=== PATIENT | female | born 1950 | race Caucasian/White ===

== ENCOUNTER → 2017-06-29 13:51 | Outpatient (CLI) | payer MEDICARE, BC ==
[2013-04-17 11:14] VITALS: BMI 42.1
[~2017-06-29 13:51] MED LIST: ADVAIR 100/501 DISK INH; GLUCOTROL 5 MG T5 MG PO; LASIX20 MG PO; LISINOPRIL-HCTZ1 T13 PO; PRAVACHOL20 MG PO; SINGULAIR10 MG PO
== END | disposition home or self-care (01) ==
LOC: D.MAMMO 11:15
DX: Z12.31 Encounter for screening mammogram for malignant neoplasm of breast (principal)

== ENCOUNTER → 2018-04-18 12:48 | Outpatient (CLI) | payer MEDICARE, BC ==
[2013-04-17 11:14] VITALS: BMI 42.1
--- NOTE | ~2018-04-18 | EC ---
PATIENT:JASPREET NELSON DATE OF SERVICE: 04/18/18 SEX: F MEDICAL RECORD: [id number] DATE OF : 46 [facility] AGE OF PATIENT: 68 ADMISSION DATE: 04/18/18 REFERRING PHYSICIAN: INTERPRETING PHYSICIAN: KOKO WOODALL MD ECHOCARDIOGRAM REPORT ECHO CHARGES 4 ECHO COMPLETE Date: 04/18/18 CLINICAL DIAGNOSIS: HTN, SYNCOPE ECHOCARDIOGRAPHIC MEASUREMENTS (adult normal given) AC root (d.<3.7cm) 2.8 cm LV Septum d (<1.2 cm> 1.1 cm Valve Excursion 1.5 cm LV Septum (systole) 1.2 cm Left Atria (s.<4.0cm> 3.6 cm LVPW d(<1.2cm) 0.7 cm RV (d.<2.3cm) 3.2 cm LVPW (sytole) 0.7 cm LV diastole(<5.6CM) 5.4 cm MV E-F(>70mm/sec) cm LV systole 4.3 cm LVOT Diameter 1.8 cm MV exc.(>10mm) cm Est.ejection fraction (50-75%) % DOPPLER: LVIT cm/sec A 96 cm/sec E 74 cm/sec LA cm/sec RVSP 16.9 mmHg LVOT 110 cm/sec AOP1/2T m/s Asc. Ao 115 cm/sec RVOT 118 cm/sec RA cm/sec PA 125 cm/sec AV Gradient Peak 5.3 mmHg AV Mean 3.1 mmHg AV Area 2.8 cm MV Gradient Peak 3.4 mmHg MV Mean 1.9 mmHg MV Area cm COMMENTS: Highway Engineering Technician: Terri [facility] Propeller Inspector: Dottie Woodall TAPE# PACS Pericardial Effusion N DATE OF SERVICE: PROCEDURE: Transthoracic echocardiogram. FINDINGS: 1. Left ventricle shown to be difficult to visualize. It appears that the left ventricle has normal function, but has evidence of left ventricular hypertrophy and diastolic dysfunction. The ejection fraction 50% to 55%. 2. Left atrium is grossly normal. 3. The aortic valve is grossly normal. ECHOCARDIOGRAM REPORT [id number] JASPREET NELSON 4. The mitral valve appears to be normal. 5. The tricuspid valve appears to be normal. 6. The right ventricle is mildly dilated, but normal function. 7. The right atrium is mildly dilated. 8. Pericardium is normal. CONCLUSIONS: The patient has evidence of mild hypertensive heart disease with normal left ventricular systolic function. TRANSINT:[id number] Voice Confirmation ID: [id number] DOCUMENT ID: [id number] KOKO WOODALL MD at 0744 CC: [id number] DICTATION DATE: 04/20/18 0928 GREENSMAN: 04/20/18 1059 DEP CLI 04/18/18 [id number] [place] [address]
== END | disposition home or self-care (01) ==
LOC: D.ECHO 10:30
DX: I10 Essential (primary) hypertension (principal); E78.5 Hyperlipidemia, unspecified; R55 Syncope and collapse; I20.9 Angina pectoris, unspecified; R06.00 Dyspnea, unspecified; R06.01 Orthopnea

== ENCOUNTER → 2018-05-31 16:38 | Outpatient (CLI) | payer MEDICARE ==
[2013-04-17 11:14] VITALS: BMI 42.1
[2018-05-31 17:15] LABS: BASOPHILS 0.7 % (0-2); EOSINOPHILS 2.3 % (0-7); HEMATOCRIT 37.6 % (36.0-48.0); HEMOGLOBIN 12.8 g/dL (12-16); IMMATURE GRANULOCYTES 0.2 % (0-5); LYMPHOCYTES 32.3 % (15-50); MCV 88.3 fL (80.0-100.0); MEAN PLATELET VOLUME 11.3 fL (7.4-10.4); MONOCYTES 9.6 % (2-11); NEUTROPHILS 54.9 % (40-80); PLATELET COUNT 290 10x3/uL (130-400); RBC 4.26 10x6/uL (4.00-5.40); RDW 13.4 % (11.5-14.5); WBC 8.3 10x3/uL (4.8-10.8)
[2018-05-31 17:45] LABS: ALBUMIN 3.5 g/dL (3.4-5.0); BILIRUBIN - TOTAL 0.21 mg/dL (0.2-1.3); CALCIUM 9.2 mg/dL (8.5-10.1); CARBON DIOXIDE 28.5 mmol/L (21.0-32.0); CREATININE - SERUM 1.3 mg/dL (0.6-1.3); POTASSIUM - SERUM 4.5 mmol/L (3.5-5.1); PROTEIN - SERUM 7.2 g/dL (6.4-8.2)
== END | disposition home or self-care (01) ==
LOC: D.LABREF 16:38
PROVIDERS: Internal Medicine Cardiovascular Disease
DX: I10 Essential (primary) hypertension (principal); R06.00 Dyspnea, unspecified

== ENCOUNTER → 2018-06-01 08:38 | Outpatient (CLI) | payer MEDICARE ==
[2013-04-17 11:14] VITALS: BMI 42.1
--- NOTE | ~2018-06-01 | ST ---
PATIENT:JASPREET NELSON MEDICAL RECORD: [id number] SEX: F LOCATION:[facility] ORDER #: ADMISSION DATE: 06/01/18 AGE OF PATIENT: 68 REFERRING PHYSICIAN: INTERPRETING PHYSICIAN: FARZAD BENNETT MD DATE OF SERVICE: 06/01/2018 PROCEDURE: Nuclear stress test. INDICATION: Angina, shortness of breath, diabetes, obesity. The patient was exercised on standard Lexiscan protocol with 32.8 mCi of sestamibi injected at peak stress, 11.0 mCi were used previously for rest images. FINDINGS: Gated SPECT reveals preserved ejection fraction at 66% with good wall motion and thickening and brightening throughout all segments. SPECT imaging sestamibi is used as myocardial perfusion agent. There is homogeneous uptake throughout all segments at rest and stress with no evidence of inducible ischemia or previous infarction. OVERALL IMPRESSION: 1. This is a normal nuclear stress test with no evidence of inducible ischemia or previous infarction. 2. Gated SPECT reveals a preserved ejection fraction greater than 60%. In this patient with ongoing symptomatology, the current scan does not suggest the presence of hemodynamically significant coronary artery disease. Evaluate noncardiac etiology of chest pain. TRANSINT:[id number] Voice Confirmation ID: [id number] DOCUMENT ID: [id number] FARZAD BENNETT MD at 1925 CC: ANGELITO SMITH [id number] DICTATION DATE: 06/02/18 1420 PHYSICAL SECURITY SPECIALIST: 06/02/182112 DEP CLI 06/01/18 [facility] [address] [place] [address]
== END | disposition home or self-care (01) ==
LOC: D.HCCARDIO 08:38
DX: I20.0 Unstable angina (principal)

== ENCOUNTER 2018-09-11 11:20 | Outpatient (CLI) | payer MEDICARE ==
[~2018-09-11] VITALS: Ht 160 cm; Wt 103.6 kg
--- NOTE | ~2018-09-11 | HEMODYNAMI ---
PATIENT:JASPREET NELSON MEDICAL RECORD: [id number] : 46 LOCATION:[facility] ADMISSION DATE: 09/11/18 Generatedon:09/11/201813:33 Patient name: JASPREET NELSON Patient #: [id number] SSN: : 1950 Date of study: 09/11/2018 Page: Of Hemodynamic Procedure Report Patient Data Patient Demographics Procedure consent was obtained First Name: JASPREET Gender: Female Last Name: OMAR : 1950 Patient #: [id number] Age: 68 year(s) Race: Unknown Additional ID: [id number] Contact details [address]: [address] [place] [address] State: [place] City: [place] Zip code: [address] Past Medical History Allergies Allergen Reaction Date Comments Reported Other allergy 09/11/2018 BUCK MALDONADO Admission Admission Data Admission Date: 09/11/2018 Admission Time: 11:20 Height (in.): 63 BSA: 2.05 (m2) Height (cm.): 160.02 BMI: 40.46 (kg/m2) Weight (lbs.): 228.4 Weight (kg.): 103.6 Lab Results Lab Result Date: 09/11/2018 Lab Result Time: 0:00 Biochemistry Name Units Result Min Max BUN mg/dl 43 --(----)-* 7 18 Creatinine mg/dl 1.8 --(----)-* 0.6 1.3 CBC Name Units Result Min Max Hemoglobin g/dl 12.4 *-(----)-- 13.5 17.5 Procedure Procedure Types Cath Procedure Diagnostic Procedure C [facility] w/Coronaries Sedation Charges Moderate Sedation up to 15 minutes Procedure Description Procedure Date Procedure Date: 09/11/2018 Procedure Start Time: 13:10 Procedure End Time: 13:31 Procedure Staff Name Function Dawna Levine RT Monitor Sriram Hinojosa RT Scrub Jose Jefferson RN Nurse Gil Olvera MD Performing Physician Procedure Data Cath Procedure Fluoroscopy Diagnostic fluoroscopy Total fluoroscopy Time: 2.9 time: 2.9 min min Diagnostic fluoroscopy Total fluoroscopy dose: 993 dose: 993 mGy mGy Contrast Material Contrast Material Type Amount (ml) Isovue 300 81 Entry Location Entry Primary Successful Side Size Upsize Upsize Entry Closure Tariq ccessful Closure Location (Fr) 1 (Fr) 2 (Fr) Remarks Device Remarks Radial Right 6 Fr Mechanical artery Short Compression Estimated blood loss: 10 ml Diagnostic catheters Device Type Used For End Catheter Placement DIAGNOSTIC [place] 110cm 5 Procedure Fr catheter ([id number]) Procedure Complications No complications Procedure Medications Medication Administration Route Dosage Oxygen etCO2 Nasal cannula 2 l/min Lidocaine 2% added to field 20 Heparin Flush Bag added to field 2 bags (1000units/500ml NS) 0.9% NaCl I.V. 300 ml/hr Versed I.V. 1 mg Fentanyl I.V. 50 mcg Radial Cocktail I.A. 1 syringe (Verapomil 2mg/Nitro 400mcg/Heparin 1500units) Versed I.V. 1 mg Fentanyl I.V. 50 mcg Hemodynamics Rest BSA: 2.05 (m2) HGB: 12.4 (g/dl) O2 Consumption: Estimated: 198.17 (ml/min) O2 Co nsumption indexed: Estimated:96.67 (ml/min/m) Heart Rate: 82 (bpm) Pressure Samples Time Site Value (mmHg) Purpose Heart Use Rate(bpm) 13:15 LV 159/-9,3 Snapshot 81 Gradients Valve Time Site Site Mean SEP/DFP Peak To Heart Use 1 2 (mmHg) (sec/min) Peak Rate (mmHg) (bpm) Aortic 13:16 LV AO 85 Snapshots Pre Cath Intra NCS Post Cath Vital Signs Time Heart Resp SPO2 etCO2 NIBP (mmHg) Rhythm Pain Sedation Rate (ipm) (%) (mmHg) Status Level (bpm) 13:03:09 84 12 98 32.5 Measuring NSR 0 (11) 10(A) , No pain 13:04:29 76 22 98 34.8 208/92(103) NSR 0 (11) 10(A) , No pain 13:09:12 77 13 97 22 184/85(151) NSR 0 (11) 10(A) , No pain 13:13:52 73 14 99 29.5 156/79(130) NSR 0 (11) 9(A) , No pain 13:18:29 80 14 97 36.3 139/69(104) NSR 0 (11) 9(A) , No pain 13:22:59 82 16 99 150/75(115) NSR 0 (11) 9(A) , No pain 13:27:32 84 16 100 169/88(132) NSR 0 (11) 10(A) , No pain 13:32:10 81 15 100 180/93(150) NSR 0 (11) 10(A) , No pain Medications Time Medication Route Dose Verified Delivered Reason Notes Effectiveness by by 12:55:18 Oxygen etCO2 2 l/min Zach Buffie used for Nasal Chavez Jefferson RN procedure cannula 12:55:24 Lidocaine 2% added 20ml Zach Zach for local to vial Chavez Byrne MD anesthetic field 12:55:30 Heparin Flush added 2 bags Zach Zach used for Bag to Chavez Byrne MD procedure (1000units/500ml field NS) 12:55:41 0.9% NaCl I.V. 300 Zachradha Uriasie Per ml/hr Chavez Jefferson RN physician 13:11:25 Versed I.V. 1 mg Zachradha Uriasie for sedation Chavez Jefferson RN 13:11:30 Fentanyl I.V. 50 mcg Zach Uriasie for sedation Chavez Jefferson RN 13:11:42 Radial Cocktail I.A. 1 Gil Igl for (Verapomil syringe Wade Olvera MD vasodilation 2mg/Nitro 400mcg/Heparin 1500units) 13:16:03 Versed I.V. 1 mg Gil Gil for sedation Wade Olvera MD 13:16:06 Fentanyl I.V. 50 mcg Gil Gil for sedation Wade Olvera MD Procedure Log Time Note 12:13:46 Patient Weight : 228.4 lbs 12:13:57 Patient Height : 63 inches 12:15:27 Time tracking: Regular hours (M-F 7:00 - 5:00) 12:15:31 Plan of Care:Hemodynamics will remain stable., Cardiac rhythm will remain stable., Comfort level will be maintained., Respiratory function will remain adequate., Patient/ family verbilizes understanding of procedure., Procedure tolerated without complication., Recovers from procedure without complications.. 12:15:33 Diagnostic Cath status Elective 12:15:34 Signed procedure consent form obtained from patient. 12:15:46 Patient allergic to Other allergyPCN, CODEINE 12:44:45 H&P Date Dictated: 09/11/2018 Within 30 days and on chart., H&P Addendum completed by physician on day of procedure. (MUST COMPLETE FOR ALL OUTPATIENTS). 12:45:35 Dawna Levine RT(R) sent for patient. Start room use. 12:53:33 Patient received from Pre/Post Procedure Room to CCL 1 Alert and oriented. Tansferred to table in Supine position. 12:53:34 Warm blankets applied, and sourav hugger turned on for patient comfort. 12:53:34 Correct patient and procedure confirmed by team. 12:53:39 ECG and BP/O2 sat monitors applied to patient. 12:55:18 Oxygen 2 l/min etCO2 Nasal cannula was administered by Jose Jefferson RN; used for procedure; 12:55:24 Lidocaine 2% 20ml vial added to field was administered by Zach Byrne MD; for local anesthetic; 12:55:30 Heparin Flush Bag (1000units/500ml NS) 2 bags added to field was administered by Zach Byrne MD; used for procedure; 12:55:41 0.9% NaCl 300 ml/hr I.V. was administered by Jose Jefferson RN; Per physician; 13:01:20 Vital chart was started 13:01:52 Baseline sample Acquired. 13:01:56 Rhythm: sinus rhythm 13:01:57 Full Disclosure recording started 13:01:58 Pre-procedure instructions explained to patient. 13:01:58 Pre-op teaching completed and patient verbalized understanding. 13:02:54 Family in waiting room. 13:02:55 Patient NPO since Midnight. 13:02:58 Is patient on blood thinner?No 13:02:59 Patient diabetic? Yes. 13:03:01 If diabetic: On Metformin? No 13:03:04 Patient not . Patient is over age 55. 13:03:14 Previous problem with sedation/anesthesia? Yes CHOKES 13:03:15 Snore? Yes 13:03:16 Sleep apnea? No 13:03:17 Deviated septum? No 13:03:19 Opens mouth fully? Yes 13:03:20 Sticks out tongue? Yes 13:03:22 Airway obstruction? Yes ASTHMA 13:03:24 Dentures? No ? 13:03:31 Modified Remy's test Ulnar < 7 seconds 13:03:33 Patient pain scale 0/10 ?. 13:03:45 IV patent on arrival in left forearm with 0.9% NaCl at [facility]. 13:04:09 Lab Result : Creatinine 1.8 mg/dl 13:04:09 Lab Result : BUN 43 mg/dl 13:04:09 Lab Result : Hemoglobin 12.4 g/dl 13:04:21 Lab results completed and on chart. 13:04:23 Right Radial & Right Groin area was prepped with chlora-prep and draped in sterile fashion 13:04:24 Alarms reviewed by R. N. 13:04:24 Sharps counted by scrub and verified by R.N. 13:04:26 --------ALL STOP TIME OUT------ 13:04:27 Final Timeout: patient, procedure, and site verified with staff and physician. All members of the team are in agreement. 13:04:28 Right Radial & Right Groin site verified by team. 13:04:30 Fire Safety Assessment: A--An alcohol-based skin anteseptic being used preoperatively., C--Open oxygen or nitrous oxide is being used., D--An ESU, laser, or fiber-optic light is being used. 13:04:57 Physical assessment completed. ASA score P 2 - A patient with mild systemic disease as per Gil Olvera MD. 13:04:59 Sedation plan: IV Moderate Sedation Medication:Versed, Fentanyl 13:07:31 Use device set Radial Dx or PCI 13:07:32 ACIST Syringe (12324) opened to sterile field. 13:07:34 Bag Decanter () opened to sterile field. 13:07:35 ACIST Hand Control (86531) opened to sterile field. 13:07:36 ACIST Manifold (69140) opened to sterile field. 13:07:36 Tegaderm 4 x 4 (1626W) opened to sterile field. 13:07:38 Medline Cath Pack ([id number]) opened to sterile field. 13:07:38 DIAGNOSTIC WIRE .035 260cm J wire (089467) opened to sterile field. 13:07:39 MBrace Wrist Support ([id number]) opened to sterile field. 13:07:40 SHEATH 6FR Slender (71-9627) opened to sterile field. 13:10:06 Procedure started. 13:10:11 Zero performed for pressure channel P1 13:10:41 Local anesthetic to right radial artery with Lidocaine 2% by Gil Olvera MD.INITIAL ACCESS ONLY 13:11:25 Versed 1 mg I.V. was administered by Jose Jefferson RN; for sedation; 13:11:30 Fentanyl 50 mcg I.V. was administered by Jose Jefferson RN; for sedation; 13:11:42 Radial Cocktail (Verapomil 2mg/Nitro 400mcg/Heparin 1500units) 1 syringe I.A. was administered by Gil Olvera MD; for vasodilation; 13:13:51 A 6 Fr Short sheath was inserted into the Right Radial artery 13:14:11 A DIAGNOSTIC [place] 110cm 5 Fr catheter (157990) was advanced over the wire and used for Procedure. 13:15:19 LV gram done using FONSECA 13:15:21 Injector settings: Ml/sec: 7, Volume: 15, 13:15:44 LV hemodynamics recorded. 13:16:00 EF : 60 % 13:16:03 Versed 1 mg I.V. was administered by Gil Olvera MD; for sedation; 13:16:06 Fentanyl 50 mcg I.V. was administered by Gil Olvera MD; for sedation; 13:18:05 LCA angiography performed. 13:24:35 RCA angiography performed. 13:25:31 Catheter removed. 13:26:50 Procedure ended.(Physican Out) 13:26:57 TR BAND Large ([id number]) opened to sterile field. 13:27:05 Sheath removed intact; hemostasis achieved with Mechanical Compression to the Right Radial artery. 13:27:35 Fluoroscopy time 02.90 minutes. 13:27:39 Contrast amount:Isovue 300 81ml. 13:27:43 Fluoroscopy dose: 993 mGy 13:27:43 Flurop Dose total: 993 13:27:51 Sharps counted by scrub and verified by R.N. 13:27:54 TR band inflated with 14cc of air. 13:28:34 Post-procedure physical assessment completed. ASA score P 2 - A patient with mild systemic disease as per Gil Olvera MD. 13:28:37 Post procedure rhythm: sinus rhythm 13:28:39 Estimated blood loss: 10 ml 13:29:19 Post procedure instruction explained to patient.Patient verbalizes understanding. 13:29:19 Patient needs reinforcement of post procedure teaching. 13:29:54 Procedure type changed to Cath procedure, Diagnostic procedure, LHC, LHC w/Coronaries, Sedation Charges, Moderate Sedation up to 15 minutes 13:30:51 NEEDLE Cook 21G 4cm Radial (S34212) opened to sterile field. 13:31:16 Procedure and supply charges have been captured, reviewed, submitted and are correct. 13:31:18 Procedure Complication : No complications 13:31:20 Vital chart was stopped 13:31:20 See physician's report for complete and final results. 13:31:22 Report given to Pre/Post Procedure Room. 13:31:25 Patient transfered to Pre/Post Procedure Room with Bed. 13:31:27 Procedure ended. 13:31:27 Full Disclosure recording stopped 13:31:31 End room use (Document Last) Device Usage Item Name Manufacture Quantity Catalog Hospital Part Current Minimal Lot# / Number Charge Number Stock Stock Serial# Code ACIST Acist 1 80968 839087 796389 550551 20 Syringe Medical (23240) Systems Inc Bag Microtek 1 163732 76897 452897 5 Decanter Medical Inc. () ACIST Hand Acist 1 79233 463705 536910 947221 5 Control Medical (98647) Systems Inc ACIST Acist 1 53049 045892 619619 002696 5 Manifold Medical (63845) Systems Inc Tegaderm 4 3M 1 1626W 239485 478517 690008 5 x 4 (1626W) Medline Medline 1 [id number] 262370 48132 619883 5 Cath Pack ([id number]) DIAGNOSTIC [facility] 1 555916 626786 824864 140418 30 WIRE .035 260cm J wire (182944) MBrace Advanced 1 140-0250-00 048856 39969 868374 5 Wrist Vascular Support Dynamics ([id number]) SHEATH 6FR Terumo 1 [id number] 095855 926937 050598 5 Slender (80-1060) DIAGNOSTIC Terumo 1 40-0709 079500 685268 927056 5 [place] 110cm 5 Fr catheter (058652) TR BAND Terumo 1 [id number] 776408 333087 499201 40 Large ([id number]) NEEDLE [facility] 1 [id number] 033830 557652 837809 5 21G 4cm Radial (G86362) Signature Audit [place] Stage Time Signature Unsigned Intra-Procedure 09/11/2018 Dawna Levine 1:33:47 PM RT(R) Signatures Monitor : Dawna Levine Signature : RT Date : Time : [address] [place] [address]
[2018-09-11] MEDS ORDERED: NEURONTIN 300300 MG PO (11:41)
[2018-09-11] MEDS ORDERED: DICLOFENAC SODI50 MG PO (11:41)
[2018-09-11] MEDS ORDERED: LEVOTHYROXINE50 MCG PO (11:42)
[2018-09-11] MEDS ORDERED: FUROSEMIDE20 MG PO (11:46)
[2018-09-11 11:47] VITALS: BP 140/80; Ht 160 cm; Wt 103.6 kg
[2018-09-11 12:01] LABS: BASOPHILS 0.5 % (0-2); HEMATOCRIT 36.7 % (36.0-48.0); HEMOGLOBIN 12.4 g/dL (12-16); IMMATURE GRANULOCYTES 0.1 % (0-5); LYMPHOCYTES 35.8 % (15-50); MCH 29.5 pg (26.0-34.0); MCHC 33.8 g/dL (31.0-37.0); MCV 87.2 fL (80.0-100.0); MEAN PLATELET VOLUME 10.4 fL (7.4-10.4); MONOCYTES 10.3 % (2-11); NEUTROPHILS 48.3 % (40-80); PLATELET COUNT 298 10x3/uL (130-400); RBC 4.21 10x6/uL (4.00-5.40); RDW 12.9 % (11.5-14.5); WBC 7.7 10x3/uL (4.8-10.8)
[2018-09-11 12:12] LABS: ANION GAP 18.2 mmol/L (8-16); CARBON DIOXIDE 22.5 mmol/L (21.0-32.0); CREATININE - SERUM 1.8 mg/dL (0.6-1.3); POTASSIUM - SERUM 4.7 mmol/L (3.5-5.1)
== END 2018-09-11 16:10 | disposition home or self-care (01) ==
LOC: D.CATH 11:20
PROVIDERS: Internal Medicine Cardiovascular Disease
DX: I25.119 Atherosclerotic heart disease of native coronary artery with unspecified angina pectoris (principal); E11.9 Type 2 diabetes mellitus without complications; I10 Essential (primary) hypertension; E03.9 Hypothyroidism, unspecified; J45.909 Unspecified asthma, uncomplicated; M19.90 Unspecified osteoarthritis, unspecified site; Z88.5 Allergy status to narcotic agent; Z88.0 Allergy status to penicillin; Z79.84 Long term (current) use of oral hypoglycemic drugs; Z79.899 Other long term (current) drug therapy

== ENCOUNTER 2018-09-20 11:33 | Observation (INO) | payer MEDICARE ==
[~2018-09-20] VITALS: Ht 160 cm; Wt 103.4 kg
--- NOTE | ~2018-09-20 | HEMODYNAMI ---
PATIENT:JASPREET NELSON MEDICAL RECORD: [id number] : 46 LOCATION:[facility] ADMISSION DATE: 09/20/18 Generatedon:09/20/201814:14 Patient name: JASPREET NELSON Patient #: [id number] SSN: : 1950 Date of study: 09/20/2018 Page: Of Hemodynamic Procedure Report Patient Data Patient Demographics Procedure consent was obtained First Name: JASPREET Gender: Female Last Name: OMAR : 1950 Patient #: [id number] Age: 68 year(s) Race: Unknown Additional ID: [id number] Contact details [address]: [address] [place] [address] State: [place] City: [place] Zip code: [address] Past Medical History Allergies Allergen Reaction Date Comments Reported Other allergy 09/11/2018 PCN, CODEINE Other allergy 09/20/2018 PCN, CODEINE Admission Admission Data Admission Date: 09/20/2018 Admission Time: 11:33 Height (in.): 63 BSA: 2.06 (m2) Height (cm.): 160.02 BMI: 41.1 (kg/m2) Weight (lbs.): 232 Weight (kg.): 105.23 Lab Results Lab Result Date: 09/20/2018 Lab Result Time: 0:00 Biochemistry Name Units Result Min Max BUN mg/dl 33 --(----)-* 7 18 Creatinine mg/dl 1.7 --(----)-* 0.6 1.3 CBC Name Units Result Min Max Hematocrit % 37.5 *-(----)-- 42 54 Hemoglobin g/dl 12.8 -*(----)-- 13.5 17.5 Procedure Procedure Types Cath Procedure Diagnostic Procedure Sedation Charges Moderate Sedation up to 15 minutes PCI Procedure Coronary Stent Coronary Stent Initial Procedure Description Procedure Date Procedure Date: 09/20/2018 Procedure Start Time: 13:42 Procedure End Time: 14:06 Procedure Staff Name Function Alexandria Cornelius RT Scrub Gil Olvera MD Performing Physician Jozef Lemus RN Nurse Dawna Levine RT Monitor Procedure Data Cath Procedure Fluoroscopy Diagnostic fluoroscopy Total fluoroscopy Time: 4.6 time: 4.6 min min Diagnostic fluoroscopy Total fluoroscopy dose: 863 dose: 863 mGy mGy Contrast Material Contrast Material Type Amount (ml) Isovue 300 65 Entry Location Entry Primary Successful Side Size Upsize Upsize Entry Closure Succes sful Closure Location (Fr) 1 (Fr) 2 (Fr) Remarks Device Remarks Femoral Right 6 Fr Exoseal artery Short Estimated blood loss: 10 ml Procedure Complications No complications Procedure Medications Medication Administration Route Dosage 0.9% NaCl I.V. 100 ml/hr Oxygen etCO2 Nasal cannula 2 l/min Heparin Flush Bag added to field 2 bags (1000units/500ml NS) Lidocaine 2% added to field 20 Benadryl I.V. 50 mg Versed I.V. 1 mg Fentanyl I.V. 50 mcg Heparin Bolus I.V. 23001 units Versed I.V. 0.5 mg Fentanyl I.V. 25 mcg Plavix P.O. 600 mg Clonidine P.O. 0.1 mg Hemodynamics Rest BSA: 2.06 (m2) HGB: 12.8 (g/dl) O2 Consumption: Estimated: 196.9 (ml/min) O2 Con sumption indexed: Estimated:95.58 (ml/min/m) Heart Rate: 79 (bpm) Snapshots Pre Cath Intra NCS Post Cath Vital Signs Time Heart Resp SPO2 etCO2 NIBP (mmHg) Rhythm Pain Sedation Rate (ipm) (%) (mmHg) Status Level (bpm) 13:34:37 72 14 98 35.7 190/94(160) NSR 0 (11) 10(A) , No pain 13:39:01 73 14 99 37.2 176/86(129) NSR 0 (11) 10(A) , No pain 13:43:29 76 14 100 36.5 190/99(156) NSR 0 (11) 10(A) , No pain 13:47:54 77 15 100 37.2 173/80(125) NSR 0 (11) 10(A) , No pain 13:52:16 82 11 100 34.2 168/81(129) NSR 0 (11) 10(A) , No pain 13:57:52 84 11 100 34.2 193/92(147) NSR 0 (11) 10(A) , No pain 14:02:28 87 19 100 34.2 214/103(165) NSR 0 (11) 10(A) , No pain 14:07:13 89 10 100 33.4 230/120(183) NSR 0 (11) 10(A) , No pain 14:09:51 85 20 100 34.9 241/117(187) NSR 0 (11) 10(A) , No pain Medications Time Medication Route Dose Verified Delivered Reason Note s Effectiveness by by 13:34:46 0.9% NaCl I.V. 100 Jozef Jozef Per physician ml/hr Allan Lemus RN RN 13:34:55 Oxygen etCO2 2 Jozef Jozef for low 02 sats Nasal l/min Allan Lemus cannula RN RN 13:35:03 Heparin Flush added 2 bags Jozef Jozef used for Bag to Allan Lemus procedure (1000units/500ml RN RN NS) 13:35:13 Lidocaine 2% added 20ml Jozef Jozef for local to vial Allan Lemus anesthetic field RN RN 13:38:08 Benadryl I.V. 50 mg Jozef Jozef Per physician Allan Lemus RN RN 13:42:02 Versed I.V. 1 mg Jozef Jozef for sedation Allan Lemus RN RN 13:42:09 Fentanyl I.V. 50 mcg Jozef Jozef for sedation Allan Lemus RN RN 13:45:06 Fentanyl I.V. 25 mcg Jozef Jozef for sedation Allan Lemus RN RN 13:45:59 Versed I.V. 0.5 mg Jozef Jozef for sedation Allan Lemus RN RN 13:49:08 Heparin Bolus I.V. 10,500 Jozef Jozef for units Allan Lemus anticoagulation RN RN 14:05:07 Plavix P.O. 600 mg Jozef Jozef for Allan Lemus antiplatelet RN RN therapy 14:13:43 Clonidine P.O. 0.1 mg Jozef Jozef for Allan Lemus hypertension RN hotel security officer Log Time Note 13:18:54 Jozef Lemus RN sent for patient. Start room use. 13:18:55 Time tracking: Regular hours (M-F 7:00 - 5:00) 13:18:58 Plan of Care:Hemodynamics will remain stable., Cardiac rhythm will remain stable., Comfort level will be maintained., Respiratory function will remain adequate., Patient/ family verbilizes understanding of procedure., Procedure tolerated without complication., Recovers from procedure without complications.. 13:21:57 Patient received from Pre/Post Procedure Room to CCL 1 Alert and oriented. Tansferred to table in Supine position. 13:21:58 Warm blankets applied, and sourav hugger turned on for patient comfort. 13:21:59 Correct patient and procedure confirmed by team. 13:22:00 Signed procedure consent form obtained from patient. 13:22:01 ECG and BP/O2 sat monitors applied to patient. 13:22:01 Full Disclosure recording started 13:26:36 Vital chart was started 13:30:39 Baseline sample Acquired. 13:30:43 Rhythm: sinus rhythm 13:30:46 Pre-procedure instructions explained to patient. 13:30:46 Pre-op teaching completed and patient verbalized understanding. 13:30:48 Family in patients room. 13:30:49 Patient NPO since Midnight. 13:31:07 Patient allergic to Other allergyPCN, CODEINE 13:31:09 Is patient on blood thinner?No 13:31:10 Patient diabetic? Yes. 13:31:11 If diabetic: On Metformin? No 13:31:16 Previous problem with sedation/anesthesia? Yes COUGHING 13:31:17 Snore? Yes 13:31:22 Sleep apnea? No 13:31:23 Deviated septum? No 13:31:24 Opens mouth fully? Yes 13:31:25 Sticks out tongue? Yes 13:31:29 Airway obstruction? Yes ASTHMA 13:31:32 Dentures? No ? 13:31:47 Patient pain scale 0/10 ?. 13:31:54 IV patent on arrival in left forearm with 0.9% NaCl at [facility]. 13:33:07 Pre procedure: right dorsailis pedis pulse 2+ Normal; easily identifiable; not easily obliterated 13:33:39 Lab Result : BUN 33 mg/dl 13:33:39 Lab Result : Creatinine 1.7 mg/dl 13:33:39 Lab Result : Hemoglobin 12.8 g/dl 13:33:39 Lab Result : Hematocrit 37.5 % 13:33:42 Lab results completed and on chart. 13:33:45 Right groin area was prepped with chlora-prep and draped in sterile fashion 13:33:46 Alarms reviewed by R. N. 13:33:46 Sharps counted by scrub and verified by R.N. 13:33:50 Use device set CATH PACK 13:33:51 ACIST Syringe (01470) opened to sterile field. 13:33:51 ACIST Hand Control (02649) opened to sterile field. 13:33:51 ACIST Manifold (07012) opened to sterile field. 13:33:52 Medline Cath Pack ([id number]) opened to sterile field. 13:33:52 Bag Decanter (2002S) opened to sterile field. 13:33:53 DIAGNOSTIC WIRE .035 260cm J wire (753498) opened to sterile field. 13:34:14 SHEATH 6FR [place] (FIQ251) opened to sterile field. 13:34:14 TUBING High Pressure Extension Tubing (Olvera) ([id number]) opened to sterile field. 13:34:15 BMW 300cm Straight Dunlap 2 wire ([id number]) opened to sterile field. 13:34:15 INFLATOR Merit BasixCompak (PC8335) opened to sterile field. 13:34:46 0.9% NaCl 100 ml/hr I.V. was administered by Jozef Lemus RN; Per physician; 13:34:55 Oxygen 2 l/min etCO2 Nasal cannula was administered by Jozef Lemus RN; for low 02 sats; 13:35:03 Heparin Flush Bag (1000units/500ml NS) 2 bags added to field was administered by Jozef Lemus RN; used for procedure; 13:35:13 Lidocaine 2% 20ml vial added to field was administered by Jozef Lemus RN; for local anesthetic; 13:38:08 Benadryl 50 mg I.V. was administered by Jozef Lemus RN; Per physician; 13:41:01 --------ALL STOP TIME OUT------ 13:41:01 Final Timeout: patient, procedure, and site verified with staff and physician. All members of the team are in agreement. 13:41:03 Right groin site verified by team. 13:41:07 Fire Safety Assessment: A--An alcohol-based skin anteseptic being used preoperatively., C--Open oxygen or nitrous oxide is being used., D--An ESU, laser, or fiber-optic light is being used. 13:41:12 Maximum allowable Isovue 300 dose 51.2ml. Physician notified. (300ml for normal creatinines. For patients with creatinine of 1.7 or higher multiply weight x 5 divided by creatinine.) 13:41:16 Physical assessment completed. ASA score P 2 - A patient with mild systemic disease as per Gil Olvera MD. 13:41:19 Sedation plan: IV Moderate Sedation Medication:Versed, Fentanyl 13:41:20 Zero performed for pressure channel P1 13:41:53 Procedure started. 13:42:02 Versed 1 mg I.V. was administered by Jozef Lemus RN; for sedation; 13:42:09 Fentanyl 50 mcg I.V. was administered by Jozef Lemus RN; for sedation; 13:42:09 GUIDE 6FR AR 1.0 catheter ([id number]) opened to sterile field. 13:42:14 Local anesthetic to right femoral artery with Lidocaine 2% by Gil Olvera MD.INITIAL ACCESS ONLY 13:42:36 A 6 Fr Short sheath was inserted into the Right Femoral artery 13:43:03 Patient Height : 63 inches 13:43:05 Patient Weight : 232 lbs 13:43:17 6 Fr AR 1 guide catheter was inserted over the wire 13:44:51 Guide Catheter removed. unable to cannulate vessel. 13:45:06 Fentanyl 25 mcg I.V. was administered by Jozef Lemus RN; for sedation; 13:45:55 GUIDE 6FR JR 4.0 catheter ([id number]) opened to sterile field. 13:45:59 Versed 0.5 mg I.V. was administered by Jozef Lemus RN; for sedation; 13:46:05 6 Fr JR 4 guide catheter was inserted over the wire 13:49:08 Heparin Bolus 10,500 units I.V. was administered by Jozef Lemus RN; for anticoagulation; 13:50:25 BMW 300 wire advanced. 13:50:28 Wire advanced across lesion. 13:54:23 Inflate balloon Inflation number: 1 A EUPHORA 2.5 x 20 Balloon ([id number]) was prepped and advanced across the Mid RCA, then inflated to 12 LAMAR for 0:10 (min:sec). 13:54:42 Inflation number: 2 The EUPHORA 2.5 x 20 Balloon ([id number]) was reinflated across the Mid RCA, to 12 LAMAR for 0:10 (min:sec). 13:55:41 Balloon removed over the wire. 13:58:19 Place stent Inflation Number: 3 A MERY OTW 3.0 x 30 stent ([id number]) was prepped and advanced across the Mid RCA. The stent was deployed at 13 LAMAR for 0:10 (min:sec). 13:59:11 Stent catheter was removed intact over wire. 13:59:11 Wire removed. 13:59:12 Guide catheter removed. 13:59:33 EXOSEAL 6Fr (EX600) opened to sterile field. 14:00:26 Sheath removed intact; hemostasis achieved with Exoseal to the Right Femoral artery. 14:01:19 Procedure ended.(Physican Out) 14::58 Fluoroscopy time 04.60 minutes. 14:02:05 Fluoroscopy dose: 863 mGy 14:02:05 Flurop Dose total: 863 14:02:09 Contrast amount:Isovue 300 65ml. 14:02:10 Sharps counted by scrub and verified by R.N. 14:02:13 Post-op/insertion site Right Femoral artery dressed using a 4 x 4 and Tegaderm. 14:02:17 Post-procedure physical assessment completed. ASA score P 2 - A patient with mild systemic disease as per Gil Olvera MD. 14:02:20 Post procedure rhythm: sinus rhythm 14:02:21 Estimated blood loss: 10 ml 14:04:56 Post procedure instruction explained to patient.Patient verbalizes understanding. 14:04:56 Patient needs reinforcement of post procedure teaching. 14:05:07 Plavix 600 mg P.O. was administered by Jozef Lemus RN; for antiplatelet therapy; 14:05:32 Procedure type changed to Cath procedure, Diagnostic procedure, Sedation Charges, Moderate Sedation up to 15 minutes, PCI procedure, Coronary Stent, Coronary Stent Initial 14:05:53 Procedure and supply charges have been captured, reviewed, submitted and are correct. 14:05:55 Procedure Complication : No complications 14:05:58 Vital chart was stopped 14:05:58 See physician's report for complete and final results. 14:06:00 Report given to Pre/Post Procedure Room. 14:06:02 Patient transfered to Pre/Post Procedure Room with Bed. 14:06:09 Procedure ended. 14:06:09 Full Disclosure recording stopped 14:06:12 End room use (Document Last) 14:13:43 Clonidine 0.1 mg P.O. was administered by Jozef Lemus RN; for hypertension; Intervention Summary Intervention Notes Time ActionType Lesion and Equipment Action# Pressure Duration Attributes Used 13:54:23 Inflate Mid RCA EUPHORA 2.5 x 1 12 00:10 balloon 20 Balloon ([id number]) 13:54:42 Reinflate Mid RCA EUPHORA 2.5 x 2 12 00:10 balloon 20 Balloon ([id number]) 13:58:19 Place stent Mid RCA MERY OTW 3.0 3 13 00:10 x 30 stent ([id number]) Device Usage Item Name Manufacture Quantity Catalog Hospital Part Current [facility] Lot# / Number Charge Number Stock Stock Serial# Code ACIST Syringe Acist 1 88672 262004 007791 087690 20 (55149) Medical Systems Inc ACIST Hand Acist 1 02746 690384 148661 086302 5 Control Medical (26722) Systems Inc ACIST Acist 1 59561 530319 207745 029478 5 Manifold Medical (19228) Systems Inc Medline Cath Medline 1 [id number] 409477 98669 007901 5 Pack ([id number]) Bag Decanter Microtek 1 2001S 536351 25877 429527 5 (2001S) Medical Inc. DIAGNOSTIC [place] 1 343787 510964 606523 550261 30 WIRE .035 260cm J wire (281639) SHEATH 6FR Terumo 1 BPI661 059399 928413 959834 40 [place] (YUK515) TUBING High Merit 1 [id number] 277098 28061 031226 10 Pressure Medical Extension Tubing (Olvera) (QH9958X) BMW 300cm Cuevas 1 4186323 961612 838619 378573 5 Straight Vascular [place] 2 wire (7983593) INFLATOR Merit 1 HJ7291 733551 695911 876617 15 Merit Medical BasixCompak (WF4046) GUIDE 6FR AR Medtronic 1 EQ1MR75 413171 38548 434571 1 1.0 catheter (OS7QU03) GUIDE 6FR JR Medtronic 1 CK2NR68 060437 74284 085296 1 4.0 catheter (MS2BX32) EUPHORA 2.5 x Medtronic 1 [id number] 040098 655854 350357 5 [id number] 20 Balloon ([id number]) MERY OTW 3.0 Medtronic 1 [id number] 520488 2737463 592219 5 [id number] x 30 stent ([id number]) EXOSEAL 6Fr Cardinal 1 EX600 390685 821149 518698 10 (EX600) Health Signature Audit [place] Stage Time Signature Unsigned Intra-Procedure 09/20/2018 Dawna Levine 2:14:14 PM RT(R) Signatures Monitor : Dawna Levine Signature : RT Date : Time : [place] [id number] [place] [address]
[~2018-09-20 11:33] MED LIST changes: +DICLOFENAC SODI50 MG PO; +FUROSEMIDE20 MG PO; +LEVOTHYROXINE50 MCG PO; +NEURONTIN 300300 MG PO
[2018-09-20] MEDS ORDERED: BAYER CHEWABLE81 MG PO (11:51)
[2018-09-20 12:14] VITALS: BP 205/85; BMI 40.4
[2018-09-20 12:22] LABS: BASOPHILS 0.6 % (0-2); EOSINOPHILS 4.4 % (0-7); HEMATOCRIT 37.5 % (36.0-48.0); HEMOGLOBIN 12.8 g/dL (12-16); IMMATURE GRANULOCYTES 0.2 % (0-5); LYMPHOCYTES 33.8 % (15-50); MCH 29.5 pg (26.0-34.0); MCHC 34.1 g/dL (31.0-37.0); MCV 86.4 fL (80.0-100.0); MEAN PLATELET VOLUME 10.4 fL (7.4-10.4); MONOCYTES 7.8 % (2-11); NEUTROPHILS 53.2 % (40-80); PLATELET COUNT 309 10x3/uL (130-400); RBC 4.34 10x6/uL (4.00-5.40); RDW 12.7 % (11.5-14.5); WBC 8.7 10x3/uL (4.8-10.8)
[2018-09-20 12:34] LABS: ANION GAP 16.2 mmol/L (8-16); CALCIUM 9.2 mg/dL (8.5-10.1); CARBON DIOXIDE 23.3 mmol/L (21.0-32.0); CREATININE - SERUM 1.7 mg/dL (0.6-1.3); POTASSIUM - SERUM 4.5 mmol/L (3.5-5.1)
--- NOTE | 2018-09-20 12:47 | NUR ---
NOTIFIED DR. BROOKS REGARDING BP 207/86. NO NEW ORDERS AT THIS TIME.
--- NOTE | 2018-09-20 14:30 | NUR ---
RECIEVED TO ROOM VIA STRETCHER FROM [facility] ROOM WITH 6 FR EXOSEAL R/GROIN CDI NO BLEEDING OR HEMATOMA NOTED. HR 83 BP 249/104 DR BROOKS AT BEDSIDE WITH NEW ORDERS.
[2018-09-20] MEDS ORDERED: PLAVIX75 MG PO (14:38)
--- NOTE | 2018-09-20 14:45 | NUR ---
RIGHT GROIN DRESSING C/D/I. NO S/S OF HEMATOMA NOTED. FAMILY AT BEDSIDE. SBP ELEVATED. MD NOTIFIED AND ORDERS RECEIVED.
--- NOTE | 2018-09-20 15:00 | NUR ---
PATIENT RESTLESS AND MOVING ABOUT IN BED. SBP REMAINS ELEVATED. R/GROIN CDI
--- NOTE | 2018-09-20 15:30 | NUR ---
R/GROIN CDI WITH PATIENT RESTLESS. FAMILY AT BEDSIDE R/GROIN IS CDI
--- NOTE | 2018-09-20 16:05 | NUR ---
BP 162/85 HR 68. R/GROIN REMAINS CDI WITH NO BLEEDING NOTED.
--- NOTE | 2018-09-20 16:32 | NUR ---
PATIENT RESTING QUIETLY WITH NO DISTRESS NOTED. 6 FR EXOSEAL R/GROIN IS CDI WITH HR 71 BP 117/55
--- NOTE | 2018-09-20 16:58 | NUR ---
DR BROOKS PRESENT IN ROOM WITH ORDERS FOR ADMISSION. FAMILY AT BEDSIDE R/GROIN IS CDI WITH NO BLEEDING NOTED
--- NOTE | 2018-09-20 17:12 | NUR ---
6 FR EXOSEAL R/GROIN IS CDI WITH NO DISTRESS PATIENT IS RESTING QUIETLY WITH EYES CLOSED. HR 69 BP 116/56
--- NOTE | 2018-09-20 17:34 | NUR ---
REPOSITIONED TO [facility] UP 30 FOR COMFORT. 6 FR EXOSEAL R/GROIN REMAINS CDI. PATIENT DENIED PAIN OR NEEDS SANDWICH AND SODA TO BEDSIDE TOLERATING SIPS OF WATER
--- NOTE | 2018-09-20 17:56 | NUR ---
REPORT CALLED TO MED 2 WITH PATIENT TRANSPORTED VIA STRETCHER TO ROOM [id number] 6 FR EXOSEAL R/GROIN IS CDI HR 60 BP 108/66 CHEST PAIN IS DENIED
--- NOTE | 2018-09-20 18:20 | NUR ---
PT ARRIVED TO FLOOR VIA STRETCHER. PT ASLEEP, BUT AROUSES TO STIMULATION. SCD'S PLACED ON PT PER FAMILY REQUEST. BP 108/52. 62 SINUS RHYTHM ON THE MONITOR. LEFT FA NS AT 50. RIGHT GROIN SOFT, SHOWS NO S/S OF HEMATOMA, DRESSING C,D,I. QUICK START, MED REC, AND ADMISSION HISTORY DONE.
--- NOTE | 2018-09-20 19:33 | NUR ---
PT RESTING IN BED. ASSISTED WITH REPOSITIONING. SET HOB UP AND MADE PT THICKENED LIQUID WATER. PT IS AAO. 2L O2 NC. LEFT ARM ELEVATED ON PILLOW. NAME AND DATE PLACED ON BOARD. NO S/S OF DISTRESS. BEDLOW AND CALL LIGHT IN REACH. WILL CPOC
--- NOTE | 2018-09-20 19:37 | NUR ---
PT ASLEEP, AROUSES TO PHYSICAL STIMULI. FAMILY AT BEDSIDE. RIGHT GROIN CDI NO BLEEDING OR HEMATOMA. PEDAL PULSES WNL. PT BP 106/58 PT 66 SR ON THE MONITOR. BEDLOW AND CALL LIGHT IN REACH. PT HAS NO S/S OF DISTRESS. NAME AND DATE PLACED ON BOARD. WILL CPOC
[2018-09-20 20:00] VITALS: BP 115/59
[2018-09-21] VITALS: BP 128/65
--- NOTE | 2018-09-21 00:37 | NUR ---
PT UP TO RESTROOM WITH X1 ASSIST. PT BALANCE ISSUES AT THIS TIME. PT LEFT FOREARM IV NS INFUSING ORDERED. VOIDED A LARGE AMOUNT. PT ASSISTED BACK TO BED. HEATED DINNER UP AND OFFERED NOURISHMENT. PT HAS EDEMA LOWER EXTREM. LEFT INNER THIGH HAS SCARS. SCD'S ON BILATERAL LOWER EXTREM. RIGHT GROIN INCISION CDI. NO HEMATOMA. PT IS AAO. WILL CALL FOR ASSIST WHEN NEEDED. WILL CPOC
[2018-09-21 01:31] VITALS: BP 115/59; BMI 40.5
--- NOTE | 2018-09-21 03:26 | NUR ---
PT ASLEEP. AT BEDSIDE. PT WILL CALL FOR ASSIST WHEN NEEDED. WILL CPOC
[2018-09-21 04:30] VITALS: BP 116/59
[2018-09-21 08:03] VITALS: BP 150/54
[2018-09-21 10:21] VITALS: Ht 160 cm; Wt 103.4 kg
[2018-09-21 11:53] VITALS: BP 144/58
--- NOTE | 2018-09-21 13:51 | NUR ---
DISCHARGE INSTRUCTIONS GIVEN TO PT AND TEACHING DONE WITH PT'S DAUGHTER AND AT BEDSIDE. GAVE PT HER STENT CARD ALONG WITH HER COPY OF DISCHARGE PAPERWORK. PT HAS NO FURTHER QUESTIONS. TELEMETRY DC'D. LEFT FA 20G IV DC'D WITH CATH INTACT. DISCHARGE CHART COPY SIGNED. ESCORT CALLED FOR WC.
--- NOTE | 2018-09-21 13:57 | NUR ---
PT TAKEN DOWN VIA WC BY VOLUNTEER ACCOMPANIED BY AND DAUGHTER.
== END 2018-09-21 14:00 | disposition home or self-care (01) ==
LOC: D.CATH 11:33 → D.SDCHOLD 17:28 → D.M2 17:28 → OBSVTIME 17:29 → D.M2 18:03
PROVIDERS: ADMIT Internal Medicine Cardiovascular Disease; ATTEND Internal Medicine Cardiovascular Disease
DX: I25.119 Atherosclerotic heart disease of native coronary artery with unspecified angina pectoris (principal); I10 Essential (primary) hypertension

== ENCOUNTER 2020-12-25 20:23 | Observation (INO) | payer MEDICARE ==
[~2020-12-25] VITALS: Ht 160 cm; Wt 98.2 kg
--- NOTE | ~2020-12-25 | HEMODYNAMI ---
PATIENT:JASPREET NELSON MEDICAL RECORD: [id number] : 46 LOCATION:[facility]ona[facility]14[facility]# [id number] ADMISSION DATE: 12/25/20 Generatedon:110:20 Patient name: JASPREET NELSON Patient #: [id number] SSN: [id number] : 1950 Date of study: 12/26/2020 Page: Of Hemodynamic Procedure Report Patient Data Patient Demographics Procedure consent was obtained First Name: JASPREET Gender: Female Last Name: OMAR : 1950 Patient #: [id number] Age: 70 year(s) Race: SSN: [id number] Additional ID: [id number] Contact details [address]: [address] [place] [address] State: [place] City: [place] Zip code: [address] Past Medical History Allergies Allergen Reaction Date Comments Reported Other allergy 09/11/2018 PCN, CODEINE Other allergy 09/20/2018 PCN, CODEINE Other allergy 12/26/2020 PCN, SULFA, LORAZEPAM, CODEINE Admission Admission Data Admission Date: 12/25/2020 Admission Time: 23:58 Arrival Date: 12/26/2020 Arrival Time: 0:00 Admit Source: Other Insurance Payor: Medicare Room #: KristineE14 [facility] #: [id number] Lab Results Lab Result Date: 12/26/2020 Lab Result Time: 0:00 Biochemistry Name Units Result Min Max BUN mg/dl 28 --(----)-* 7 18 CK-MB ng/ml 0.7 --(*---)-- 0 3.6 Creatinine mg/dl 1.5 --(----)-* 0.6 1.3 eGFR ml/min 36 *-(----)-- 90 120 NONAFRICAN Troponin l ng/ml 0.017 --(-*--)-- 0 0.06 CBC Name Units Result Min Max Hematocrit % 37.8 *-(----)-- 42 54 Hemoglobin g/dl 12.4 *-(----)-- 13.5 17.5 Procedure Procedure Types Cath Procedure Diagnostic Procedure [facility] w/Coronaries Sedation Charges Moderate Sedation 10-24 minutes Procedure Description Procedure Date Procedure Date: 12/26/2020 Procedure Start Time: 9:59 Procedure End Time: 10:15 Procedure Staff Name Function Willy Reed MD Performing Physician Doron Sanders RN Nurse Jose Jefferson RN Nurse Tiana Navarrete RT Scrub Alix Pérez RT Monitor Procedure Data Cath Procedure Fluoroscopy Diagnostic fluoroscopy Total fluoroscopy Time: 1.9 time: 1.9 min min Diagnostic fluoroscopy Total fluoroscopy dose: 874 dose: 874 mGy mGy Contrast Material Contrast Material Type Amount (ml) Isovue 370 81 Entry Location Entry Primary Successful Side Size Upsize Upsize Entry Closure Succes sful Closure Location (Fr) 1 (Fr) 2 (Fr) Remarks Device Remarks Femoral Right 5 Fr Exoseal artery Estimated blood loss: 5 ml Diagnostic catheters Device Type Used For End Catheter Placement MULTIPACK JL 4.0 5Fr Procedure catheter MULTIPACK 3DRC 5Fr Procedure catheter MULTIPACK Pigtail 5 Fr Procedure catheter Procedure Complications No complications Procedure Medications Medication Administration Route Dosage 0.9% NaCl I.V. 100 ml/hr Oxygen etCO2 Nasal cannula 2 l/min Heparin Flush Bag added to field 2 bags (1000units/500ml NS) Lidocaine 2% added to field 20 Versed I.V. 1 mg Fentanyl I.V. 50 mcg Versed I.V. 1 mg Fentanyl I.V. 50 mcg Lopressor I.V. 5 mg Hemodynamics Rest HGB: 12.4 (g/dl) Heart Rate: 73 (bpm) Pressure Samples Time Site Value (mmHg) Purpose Heart Use Rate(bpm) 10:08 LV 54/-1,-4 Snapshot 67 10:09 AO 130/62(94) Pullback 67 Gradients Valve Time Site Site 2 Mean SEP/DFP Peak To Heart Use 1 (mmHg) (sec/min) Peak Rate (mmHg) (bpm) Aortic 10:09 LV AO 67 130/62(94) Snapshots Pre Cath Intra NCS Post Cath Vital Signs Time Heart Resp SPO2 etCO2 NIBP (mmHg) Rhythm Pain Sedation Rate (ipm) (%) (mmHg) Status Level (bpm) 10:01:57 71 14 96 25.4 189/77(128) NSR 0 (11) 9(A) , No pain 10:06:55 70 26 98 26.9 180/78(125) NSR 0 (11) 9(A) , No pain 10:11:50 66 16 100 29.8 181/77(142) NSR 0 (11) 9(A) , No pain 9:54:04 65 15 100 26.9 199/83(145) NSR 0 (11) 10(A) , No pain 10:16:07 66 21 100 37.3 203/81(146) NSR 0 (11) 10(A) , No pain Medications Time Medication Route Dose Verified Delivered Reason Notes E ffectiveness by by 9:50:32 0.9% NaCl I.V. 100 Willy Doron used for ml/hr [facility] Alfonso Sanders RN procedure 9:50:43 Oxygen etCO2 2 Willy Doron used for Nasal l/min [facility] Alfonso Sanders RN procedure cannula 9:50:50 Heparin Flush added 2 Willy Doron used for Bag to bags St Alfonso Sanders RN procedure (1000units/500ml field GREWAL NS) 9:50:59 Lidocaine 2% added 20ml Willy Doron for local to vial St Alfonso Sanders RN anesthetic field GREWAL 9:55:33 Versed I.V. 1 mg Willy Doron for sedation St Alfonso Sanders RN, MD 9:55:40 Fentanyl I.V. 50 Willy Doron for sedation mcg [facility] Alfonso Sanders RN, MD 10:00:45 Versed I.V. 1 mg Willy Doron for sedation St Alfonso Sanders RN, MD 10:00:49 Fentanyl I.V. 50 Willy Doron for sedation mcg [facility] Alfonso Sanders RN, MD 10:05:47 Lopressor I.V. 5 mg Willy Doron for [facility] Alfonso Sanders RN hypertension Procedure Log Time Note 9:07:27 Informed consent obtained and on chart 9:08:00 Arrival Date: 12/26/2020 12:00:00 AM 9:08:00 Admit Source: Other 9:08:04 Insurance Payor : Medicare 9:13:14 ACC Patient presents with Unstable Angina CCS Anginal Class 2--Slight limitation of ordinary activity. 9:13:32 Procedure Status Urgent Heart Cath (IP). 9:13:35 Jose Jefferson RN sent for patient. Start room use. 9:: Lab Result : CK-MB 0.7 ng/ml :: Lab Result : Troponin l 0.017 ng/ml Lab Result : BUN 28 mg/dl Lab Result : Creatinine 1.5 mg/dl : Lab Result : Hematocrit 37.8 % 9:: Lab Result : Hemoglobin 12.4 g/dl : Lab Result : eGFR NONAFRICAN 36 ml/min 9:16:48 Patient NPO since Breakfast. 9:17:26 Patient allergic to Other allergyPCN, SULFA, LORAZEPAM, CODEINE 9:17:34 Lab results completed and on chart. 9:17:37 Stress Test: no; N/A ? 9:17:39 Alarms reviewed by R. N. 9:17:39 Sharps counted by scrub and verified by R.N. 9:17:45 Time tracking: Regular hours (M-F 7:00 - 5:00) 9:17:50 Plan of Care:Hemodynamics will remain stable., Cardiac rhythm will remain stable., Comfort level will be maintained., Respiratory function will remain adequate., Patient/ family verbilizes understanding of procedure., Procedure tolerated without complication., Recovers from procedure without complications.. 9:38:30 Patient received from ED to CCL 1 Alert and oriented. Tansferred to table in Supine position. 9:38:31 Warm blankets applied, and sourav hugger turned on for patient comfort. 9:38:32 Correct patient and procedure confirmed by team. 9:38:32 ECG and BP/O2 sat monitors applied to patient. 9:38:39 H&P Date Dictated: 12/26/2020 ER History on chart.. 9:38:41 Pre-procedure instructions explained to patient. 9:38:41 Pre-op teaching completed and patient verbalized understanding. 9:38:43 Family in waiting room. 9:38:49 Is the patient allergic to Iodine/contrast media? No. 9:38:53 Was the patient premedicated? No 9:49:26 Is patient on blood thinner?No 9:49:27 Patient diabetic? Yes. 9:49:28 If diabetic: On Metformin? No 9:49:29 Patient not . Patient is over age 55. 9:49:30 ----Pre-sedation anethsthesia assessment.---- 9:49:34 Previous problem with sedation/anesthesia? No ? 9:49:35 Snore? Yes 9:49:36 Sleep apnea? Unknown 9:49:37 Deviated septum? No 9:49:38 Opens mouth fully? Yes 9:49:39 Sticks out tongue? Yes 9:49:42 Airway obstruction? Yes ASTHMA 9:49:45 Dentures? No ? 9:49:48 Pre procedure: right dorsailis pedis pulse 1+ Palpable, but thready & weak; easily obliterated 9:49:57 Patient pain scale 1/10 ?. 9:50:04 IV patent on arrival in left antecubital with 0.9% NaCl at [facility]. 9:50:16 Right groin area was prepped with chlora-prep and draped in sterile fashion 9:50:19 Vital chart was started 9:50:20 Full Disclosure recording started 9:50:23 Baseline sample Acquired. 9:50:32 0.9% NaCl 100 ml/hr I.V. was administered by Doron Sanders RN; used for procedure; Verbal order read back and verified. 9:50:43 Oxygen 2 l/min etCO2 Nasal cannula was administered by Doron Sanders RN; used for procedure; Verbal order read back and verified. 9:50:44 Rhythm: sinus rhythm 9:50:50 Heparin Flush Bag (1000units/500ml NS) 2 bags added to field was administered by Doron Sanders RN; used for procedure; Verbal order read back and verified. 9:50:59 Lidocaine 2% 20ml vial added to field was administered by Doron Sanders RN; for local anesthetic; Verbal order read back and verified. 9:51:50 Use device set Femoral Dx 9:51:51 ACIST Syringe (36853) opened to sterile field. 9:51:52 Bag Decanter () opened to sterile field. 9:51:53 Medline Cath Pack ([id number]) opened to sterile field. 9:51:54 ACIST Hand Control (61653) opened to sterile field. 9:51:55 ACIST Manifold (82102) opened to sterile field. 9:51:55 DIAGNOSTIC Multipack 5Fr catheter set ([id number]) opened to sterile field. 9:51:57 SHEATH 5FR Piru (QIW701) opened to sterile field. 9:51:58 EMERALD Guide Wire (204-288) opened to sterile field. 9:51:59 Tegaderm 4 x 4 (1626W) opened to sterile field. 9:52:16 IV Extension Set opened to sterile field. 9:54:53 --------ALL STOP TIME OUT------ 9:54:53 Final Timeout: patient, procedure, and site verified with staff and physician. All members of the team are in agreement. 9:54:55 Right groin site verified by team. 9:54:59 Fire Safety Assessment: A--An alcohol-based skin anteseptic being used preoperatively., C--Open oxygen or nitrous oxide is being used., D--An ESU, laser, or fiber-optic light is being used. 9:55:03 Physical assessment completed. ASA score P 2 - A patient with mild systemic disease as per Willy Reed MD. 9:55:08 3b) 30-44 Moderately reduced kidney function. 9:55:11 Maximum allowable contrast dose (3.7 X eGFR X 0.75)100 ml. 9:55:15 Sedation plan: IV Moderate Sedation Medication:Versed, Fentanyl 9:55:33 Versed 1 mg I.V. was administered by Doron Sanders RN; for sedation; Verbal order read back and verified. 9:55:40 Fentanyl 50 mcg I.V. was administered by Doron Sanders RN; for sedation; Verbal order read back and verified. 9:58:45 Procedure started. 9:59:41 Local anesthetic to right femoral artery with Lidocaine 2% by Willy Reed MD.INITIAL ACCESS ONLY 10:00:24 A 5 Fr sheath was inserted into the Right Femoral artery 10:00:32 A MULTIPACK JL 4.0 5Fr catheter was advanced over the wire and used for Procedure. 10:00:45 Versed 1 mg I.V. was administered by Doron Sanders RN; for sedation; Verbal order read back and verified. 10:00:49 Fentanyl 50 mcg I.V. was administered by Doron Sanders RN; for sedation; Verbal order read back and verified. 10:01:45 LCA angiography performed. 10:01:48 Injector settings: Ml/sec: 3, Volume: 6, 10:05:02 Catheter removed. 10:05:08 A MULTIPACK 3DRC 5Fr catheter was advanced over the wire and used for Procedure. 10:05:33 RCA angiography performed. 10:05:35 Injector settings: Ml/sec: 3, Volume: 6, 10:05:47 Lopressor 5 mg I.V. was administered by Doron Sanders RN; for hypertension; Verbal order read back and verified. 10:06:51 Catheter exchanged over wire. 10:06:57 A MULTIPACK Pigtail 5 Fr catheter was advanced over the wire and used for Procedure. 10:08:04 LV gram done using FONSECA 10:08:43 LV hemodynamics recorded. 10:08:46 Injector settings: Ml/sec: 5, Volume: 15, 10:08:56 EF : 55 % 10:09:11 Catheter removed. 10:10:44 EXOSEAL 5Fr (EX500) opened to sterile field. 10:11:23 Sheath removed intact; hemostasis achieved with Exoseal to the Right Femoral artery. 10:11:29 Fluoroscopy time 01.90 minutes. 10:11:49 Flurop Dose total: 874 10:11:49 Fluoroscopy dose: 874 mGy 10:11:55 Dose Area Product 21115 mGy/cm. 10:12:01 Contrast amount:Isovue 370 81ml. 10:12:04 Maximum allowable dose exceeded? No. 10:12:39 Procedure ended.(Physican Out) 10:13:07 Sharps counted by scrub and verified by R.N. 10:13:20 Post-op/insertion site Right Femoral artery dressed using a 4 x 4 and Tegaderm. 10:13:25 Post right femoral artery:stable, soft, clean and dry 10:13:30 Post Procedure Pulses reassessed and unchanged 10:13:33 Post procedure: right dorsailis pedis pulse 2+ Normal; easily identifiable; not easily obliterated. 10:13:38 Post-procedure physical assessment completed. ASA score P 2 - A patient with mild systemic disease as per Willy Reed MD. 10:13:40 Post procedure rhythm: unchanged. 10:13:43 Estimated blood loss: 5 ml 10:13:44 Post procedure instruction explained to patient.Patient verbalizes understanding. 10:13:45 Patient needs reinforcement of post procedure teaching. 10:13:56 Procedure type changed to Cath procedure, Diagnostic procedure, LHC, LHC w/Coronaries, Sedation Charges, Moderate Sedation 10-24 minutes 10:14:12 Procedure and supply charges have been captured, reviewed, submitted and are correct. 10:14:17 Procedure Complication : No complications 10:14:26 [facility] Findings: mild to moderate CAD (<70%) 10:15:20 Operative report dictated upon procedure completion. 10:15:21 See physician's report for complete and final results. 10:15:26 Report given to Pre/Post Procedure Room. 10:15:30 Patient transfered to Pre/Post Procedure Room with Stretcher. 10:15:32 Procedure ended. 10:15:32 Full Disclosure recording stopped 10:15:36 End room use (Document Last) 10:15:52 End room use (Document Last) 10:20:13 Vital chart was stopped Device Usage Item Name Manufacture Quantity Catalog Hospital Part Current Minimal L ot# / Number Charge Number Stock Stock Serial# Code ACIST Acist 1 [id number] [id number] [id number] [id number] 20 Syringe Medical (27414) Systems Inc Bag Microtek 1 2001S 120140 06529 508740 5 Decanter Medical Inc. () Medline Medline 1 [id number] 358777 01936 512852 5 Cath Pack ([id number]) ACIST Hand Acist 1 04089 579960 031319 635111 5 Control Medical (96986) Systems Inc ACIST Acist 1 43440 533267 924596 597894 5 Manifold Medical (36906) Systems Inc DIAGNOSTIC Cardinal 1 [id number] 100606 14903 495669 30 Multipack Health 5Fr catheter set (LC9607) SHEATH 5FR Terumo 1 MJV630 617095 420800 928706 5 Piru (WXJ517) EMERALD Cardinal 1 502-455 790744 567379 949069 5 Guide Wire Health (502-455) Tegaderm 4 3M 1 1626W 475817 439161 019983 5 x 4 (1626W) IV Hospira 1 02383-72 817476 98961 905190 5 Extension Set MULTIPACK Cardinal 1 581818 5 JL 4.0 5Fr Health catheter MULTIPACK Cardinal 1 117876 5 3DRC 5Fr Health catheter MULTIPACK Cardinal 1 777629 5 Pigtail 5 Health Fr catheter EXOSEAL 5Fr Cardinal 1 EX500 511976 552499 949451 10 (EX500) Health Signature Audit [place] Stage Time Signature Unsigned Intra-Procedure 12/26/2020 Alix Pérez 10:16:09 AM RT(R) Intra-Procedure 12/26/2020 Doron Sanders RN 10:16:30 AM Intra-Procedure 12/26/2020 Willy Wagner 10:20:11 AM Alfonso [place] [address] [place] [address]
[~2020-12-25 20:23] MED LIST changes: +ALBUTEROL2.5 MG/3 M INH; +AVAPRO150 MG PO; +BAYER CHEWABLE81 MG PO; +IPRAT-ALBUT 0.5-3 ML UPD; +ISOSORBIDE MONO30 M1 PO; +K-TAB10 MEQ PO; +LANTUS INS100 UNITS/ SC; +NITROQUICK0.4 MG SL; +PLAVIX75 MG PO
[2020-12-25 20:26] VITALS: Ht 160 cm; Wt 98.2 kg
--- NOTE | 2020-12-25 20:42 | NUR ---
PT ASSISTED UP TO THE RESTROOM AT THIS TIME.
[2020-12-25 21:44] LABS: BASOPHILS 1.1 % (0-2); EOSINOPHILS 1.1 % (0-7); HEMATOCRIT 39.5 % (36.0-48.0); HEMOGLOBIN 13.1 g/dL (12-16); LYMPHOCYTES 37.3 % (15-50); MCHC 33.2 g/dL (31.0-37.0); MCV 84.3 fL (80.0-100.0); MEAN PLATELET VOLUME 7.8 fL (7.4-10.4); MONOCYTES 8.1 % (2-11); NEUTROPHILS 52.4 % (40-80); RBC 4.69 10x6/uL (4.00-5.40); RDW 14.2 % (11.5-14.5); WBC 8.5 10x3/uL (4.8-10.8)
[2020-12-25 21:45] LABS: PLATELET COUNT 327 10x3/uL (130-400)
[2020-12-25 21:50] LABS: CALC OSMOLALITY 289 mosm/kg (275-300); CALCIUM 9.4 mg/dL (8.5-10.1); CARBON DIOXIDE 26.8 mmol/L (21.0-32.0); CHLORIDE - SERUM 99 mmol/L (98-107); CREATININE - SERUM 1.7 mg/dL (0.6-1.3); SODIUM 137 mmol/L (136-145); UREA NITROGEN 30 mg/dL (7-18); eGFR NON AFRICAN AMERICAN 31 mL/min (90-120)
[2020-12-25 21:51] LABS: GLUCOSE 270 mg/dL (74-106)
[2020-12-25 22:03] LABS: ALBUMIN 3.5 g/dL (3.4-5.0); ALKALINE PHOSPHATASE 71 U/L (30-120); ALT (SGPT) 26 U/L (10-68); BILIRUBIN - TOTAL 0.33 mg/dL (0.2-1.3); PRO BNP 89 pg/mL (0-125); PROTEIN - SERUM 7.2 g/dL (6.4-8.2)
[2020-12-25 22:06] LABS: TROPONIN-I < 0.017 ng/mL (0.000-0.060)
--- NOTE | 2020-12-25 22:30 | NUR ---
PT FAMILY PROVIDED DINNER FOR PT AT THIS TIME. PT DENIES FURTHER NEEDS.
[2020-12-25 23:00] VITALS: BP 195/87
--- NOTE | 2020-12-25 23:08 | NUR ---
PT ASSISTED UP TO THE RESTROOM AT THIS TIME.
[2020-12-26 02:00] VITALS: BP 165/70
[2020-12-26 05:00] VITALS: BP 166/77
--- NOTE | 2020-12-26 05:20 | NUR ---
PT ASSISTED UP TO THE REESTROOM AT THIS TIME. NO ACUTE DISTRESS NOTED, DENIES FURTHER NEEDS.
[2020-12-26 08:20] LABS: EOSINOPHILS 2.2 % (0-7); HEMATOCRIT 37.8 % (36.0-48.0); HEMOGLOBIN 12.4 g/dL (12-16); LYMPHOCYTES 41.4 % (15-50); MCH 27.9 pg (26.0-34.0); MCHC 32.7 g/dL (31.0-37.0); MCV 85.2 fL (80.0-100.0); MEAN PLATELET VOLUME 8.6 fL (7.4-10.4); NEUTROPHILS 45.4 % (40-80); PLATELET COUNT 314 10x3/uL (130-400); RBC 4.44 10x6/uL (4.00-5.40); RDW 14.1 % (11.5-14.5); WBC 7.8 10x3/uL (4.8-10.8)
[2020-12-26 08:44] LABS: ALBUMIN 3.1 g/dL (3.4-5.0); ALKALINE PHOSPHATASE 68 U/L (30-120); ALT (SGPT) 24 U/L (10-68); CALC OSMOLALITY 288 mosm/kg (275-300); CARBON DIOXIDE 26.9 mmol/L (21.0-32.0); CHLORIDE - SERUM 104 mmol/L (98-107); CREATININE - SERUM 1.5 mg/dL (0.6-1.3); POTASSIUM - SERUM 3.8 mmol/L (3.5-5.1); PROTEIN - SERUM 6.8 g/dL (6.4-8.2); SODIUM 138 mmol/L (136-145); TROPONIN-I < 0.017 ng/mL (0.000-0.060); UREA NITROGEN 28 mg/dL (7-18); eGFR NON AFRICAN AMERICAN 36 mL/min (90-120)
[2020-12-26 08:51] LABS: GLUCOSE 219 mg/dL (74-106)
[2020-12-26 09:12] LABS: CHOL - HDL RATIO 4.8 ratio (2.3-4.1); LDL-HDL RATIO 2.9 ratio (1.5-3.5)
--- NOTE | 2020-12-26 10:29 | NUR ---
PT ARRIVED BY STRETCHER. PLACED ON MONITORS. ASSESSMENT COMPLETED. VSSA AT THIS TIME. CALL LIGHT WITHIN REACH. FAMILY AT BEDSIDE
--- NOTE | 2020-12-26 10:45 | NUR ---
RIGHT GROIN DRESSING C/D/I. NO S/S OF HEMATOMA NOTED. CALL LIGHT WITHIN REACH. VSS AT THIS TIME. RIGHT PEDAL PULSE PALPABLE. PT RESTING COMFORTABLY. DENIES NAUSEA/PAIN.
--- NOTE | 2020-12-26 11:15 | NUR ---
RIGHT GROIN DRESSING C/D/I. NO S/S OF HEMATOMA NOTED. CALL LIGHT IWTHIN REACH. VSS AT THIS TIME.
--- NOTE | 2020-12-26 12:00 | NUR ---
HEAD OF BED INC TO 30 DEGREES. TOLERATED WELL. VSS AT THIS TIME. CALL LIGHT WITHIN REACH. PT SET UP WITH SANDWICH TRAY AND DRINK. DENIES NAUSEA/PAIN. FAMILY AT BEDSIDE.
[2020-12-26] MEDS ORDERED: RANEXA500 MG PO (12:12)
[2020-12-26] MEDS ORDERED: ISOSORBIDE MONO30 M1 PO (12:12)
[2020-12-26] MEDS ORDERED: CLONIDINE HCL0.1 MG PO (12:13)
--- NOTE | 2020-12-26 12:15 | NUR ---
NEW RXs CALLED INTO [facility] PER PT REQUEST SINCE SHE IS STAYING IN [facility] AND NOT [facility] UNTIL TOMORROW.
--- NOTE | 2020-12-26 13:00 | NUR ---
RIGHT GROIN DRESSING C/D/I. NO S/S OF HEMATOMA NOTED. PIV D/C'D WITH CATH TIP INTACT. TOLERATED WELL. DISCUSSED DISCHARGE INSTRUCTIONS WITH PT AND PT'S FAMILY. THEY VOICED UNDERSTANDING. PT INSTRUCTED TO GET UP AND DRESSED AT THIS TIME. NO ASSISTANCE NEEDED. CALL LIGHT WITHIN REACH.
--- NOTE | 2020-12-26 13:05 | NUR ---
PT TO RESTROOM. VOIDED WITHOUT DIFFICULTY.
--- NOTE | 2020-12-26 13:15 | NUR ---
PT TAKEN OUT TO VEHICLE BY WHEELCHAIR. NO S/S OF DISTRESS NOTED. ALL BELONGINGS AND PAPERWORK IN HAND. THEY VOICE UNDERSTANDING OF MEDICATION CHANGES AND WHERE TO LIEUTENANT/DEPUTY MEDICATIONS.
--- NOTE | 2020-12-27 14:02 | HP ---
PATIENT: JASPREET NELSON MEDICAL RECORD: [id number] ACCOUNT: [id number] LOCATION:YFN CarmonaCL12 : 46 ADMISSION DATE: 12/25/20 PCP: No PCP HISTORY AND PHYSICAL EXAMINATION REASON FOR ADMISSION: Chest pain, shortness of breath. HISTORY OF PRESENT ILLNESS: The patient is a 70-year-old female with a longstanding history of coronary artery disease and a known LAD stenosis. The patient also has a history of asthma and poorly controlled diabetes mellitus. She has been having trouble with increasing dyspnea on exertion, which is her anginal equivalent for the last week. A week ago on , she was in [facility] and walking, began very short of breath and had tightness in her chest. Her blood pressure was very high. She went home and had trouble managing her blood pressure through the weekend. She called her cardiology office on Tuesday and then scheduled for heart catheterization this coming Tuesday. She was at [facility] again yesterday when the humidity was high and she became more short of breath, nowhere to sit down at the store she said, and developed substernal discomfort, very short of breath. Ambulance was called and she was given nitroglycerin and oxygen. Eventually, her symptoms improved. Blood pressure improved. She was transferred from [facility] last night to this facility for cardiology consult and intervention. Her chest pain is resolved currently. PAST MEDICAL HISTORY: Type 2 diabetes mellitus poorly controlled, obesity, asthma, hyperlipidemia, osteoarthritis, remote meniscus injury to her knee, chronic lymphedema, hypothyroidism, diabetic neuropathy, history of syncope 03/2018, history of previous PTCA of the RCA with LAD occlusion filled by collaterals. PAST SURGICAL HISTORY: PTCA of the RCA in 2019. SOCIAL HISTORY: . Nonsmoker and nondrinker. Lives over an hour [place] a half from the hospital. ALLERGIES: ATIVAN, CODEINE, PENICILLIN, SULFA, VICTOZA. CURRENT MEDICATIONS: Advair Diskus 250 one puff b.i.d., DuoNeb updrafts q.6 hours, Lantus SoloSTAR 25 units subQ q.p.m., Xanax 0.25 mg one every 12 hours as needed for anxiety, Isordil ER 30 mg tablets 1/2 tablet twice daily, levothyroxine 50 mcg p.o. q.a.m., diclofenac sodium 50 mg b.i.d. p.c., irbesartan 150 mg p.o. daily, aspirin 81 mg a day, nitroglycerin 0.4 sublingual p.r.n. chest pain, Lasix 40 mg q.a.m., Cardizem 120 mg p.o. q.12 hours, pravastatin 40 mg with evening meal, gabapentin 300 mg t.i.d., Proventil HFA inhaler p.r.n., glipizide 5 mg p.o. b.i.d., and Plavix 75 mg p.o. daily. FAMILY HISTORY: Mother has congestive heart failure. Father had myocardial infarction. REVIEW OF SYSTEMS: GENERAL: She has been fatigued with exertional dyspnea for the last couple of weeks, more severe over the last 7 days. No fever. HEENT: No recent visual change, sinus congestion, sore throat, or hearing difficulty. RESPIRATORY: Exertional shortness of breath more marked on the last week. HISTORY AND PHYSICAL [id number] JASPREET NELSON Denies cough or sputum production. CARDIAC: Exertional shortness of breath with substernal chest pain as mentioned above. Denies palpitations. GASTROINTESTINAL: No nausea, vomiting, change in stools, blood per rectum. GENITOURINARY: No incontinence, dysuria, no vaginal bleeding. ENDOCRINE: Denies polyuria, polydipsia, heat or cold intolerance. NEUROLOGIC: No history of stroke, TIA, vascular headaches. She has chronic tingling, burning in both of her lower extremities from the ankles down. PSYCHIATRIC: Admits to anxiety, but not depressed mood. PHYSICAL EXAMINATION: VITAL SIGNS: Pulse 68, blood pressure is 165/70, sats 97% on room air. She is afebrile, respiratory rate is 17. GENERAL: The patient is alert and oriented. EYES: Clear. OROPHARYNX: Unremarkable. NECK: Supple without bruits. CHEST: Distant breath sounds without wheeze or rales. HEART: Regular rate and rhythm without murmur. ABDOMEN: Morbidly obese, soft, nontender. No organomegaly palpable. PELVIC: Deferred. EXTREMITIES: She has 2+ bipedal and pretibial edema to the knees bilaterally. SKIN: No lesions. PSYCHIATRIC: The patient denies suicidal thoughts or severe depression, but is anxious about her health. LABORATORY DATA AND DIAGNOSTIC STUDIES: CBC is normal with a hemoglobin of 13.1, platelets 327,000. Chemistry shows BUN and creatinine of 30 and 1.7, glucose of 270. Cardiac enzymes are negative. D-dimer 0.67. Chest x-ray is pending. EKG shows sinus rhythm with no acute ST segment changes. ASSESSMENT: 1. Unstable angina. 2. Known LAD stenosis with collaterals. 3. Prior PTCA of the RCA 2018. 4. Metabolic syndrome, poorly controlled. 5. History of asthma. 6. Hypothyroidism. 7. Mild renal insufficiency. PLAN: Place on hydration. The patient is on metformin currently. Cardiology will see with probable left heart catheterization today, placed on topical nitrates. TRANSINT:[id number] Voice Confirmation ID: [id number] DOCUMENT ID: [id number] HISTORY AND PHYSICAL [id number] JASPREET NELSON TIMOTHY MD at 1402 CC: [id number] DICTATION DATE: 12/26/20 0754 TALENT ACQUISITION ASSISTANT: 12/26/20 0815 DIS IN 12/26/20 [facility] [address] [place] [address]
--- NOTE | 2020-12-29 08:49 | CN ---
PATIENT NAME:JASPREET NELSON MEDICAL RECORD: [id number] : 46 LOCATION:[facility] ADMIT DATE: 12/25/20 ACCOUNT: [id number] CONSULTING PHYSICIAN: RADHA HUMPHREYS MD REFERRING PHYSICIAN: ANGELITO SMITH MD DATE OF CONSULTATION: 12/26/2020 HISTORY OF PRESENT ILLNESS: The patient is a 70-year-old lady with a known history of coronary artery disease, status post intervention via Dr. Olvera. She was actually seen in the office with progressive angina, fairly rapid progression. She has been having more trouble with her blood pressure if late. She noticed that walking during exercise in [facility], chest pressure and tightness, relieved with rest. She had rest symptoms yesterday. We are asked to see her concerning her cardiovascular status. Does have a family history of coronary artery disease, hypertension, and hyperlipidemia. PAST MEDICAL HISTORY: 1. History of coronary artery disease with stents to the right. 2. Dyslipidemia. 3. Hypertension. 4. Diabetes mellitus. 5. Hypothyroidism, on replacement. MEDICATIONS: Include insulin 25 subQ every day, Synthroid 50 mcg every day, Glucotrol 5 b.i.d., Lasix 20 mg p.o. p.r.n., Voltaren 50 mg p.o. b.i.d., aspirin 81 every day, Neurontin 300 mg t.i.d., pravastatin 20 every day, Imdur 30 every day, Avapro 150 every day, Plavix 75 every day, and DuoNebs q.i.d. as needed. ALLERGIES: PENICILLIN, SULFA, ATIVAN, AND CODEINE. SOCIAL HISTORY: . Nonsmoker and nondrinker. Easily takes care of all her ADLs. Does try to exercise on a regular basis. FAMILY HISTORY: Does have family history of coronary artery disease. REVIEW OF SYSTEMS: The patient reports easy bruising but reports no swollen glands. The patient reports no fever, no night sweats, no significant weight gain, no significant weight loss. No significant exercise tolerance. The patient reports no dry eyes, no irritation, no vision change. Patient reports no difficulty hearing and no ear pain. Patient reports no frequent nose bleeds or nose and sinus problems. Patient reports on arm pain on exertion. No shortness of breath while lying down. No history of heart murmur. Patient reports no cough, no wheezing or coughing up blood. Patient reports no abdominal pain, no vomiting. Normal appetite. No diarrhea and not vomiting blood. No nausea and no constipation. Patient reports no incontinence. No difficulty urinating. No hematuria. No increased frequency. Patient reports no muscle aches. No weakness, no arthralgias, no back pain. No swelling of the extremities. Patient reports no abnormal mole, no jaundice, no rashes. Reports no loss of consciousness. No weakness and no numbness. No seizures, dizziness, or headaches. The patient reports no depression, no sleep disturbance, feeling safe in a relationship and no alcohol abuse. Patient reports on fatigue. Reports no runny nose or sinus pressure. No itching, no hives, and no frequent sneezing. PHYSICAL EXAMINATION: CONSULT REPORT [id number] JASPREET NELSON GENERAL: No acute distress, appears stated age, alert and oriented times 3. VITAL SIGNS: Blood pressure 166/77, pulse 70 and regular. HEENT: Normocephalic, atraumatic. Extraocular muscles are intact. Face is symmetric. NECK: No JVD or bruits. CARDIOVASCULAR: Heart is regular. A II/ systolic ejection murmur. LUNGS: Good air excursion. ABDOMEN: Soft and nontender. EXTREMITIES: Pulses are 2+. There is no edema. NEUROLOGIC: Grossly intact. DIAGNOSTIC DATA: EKG shows nonspecific ST-T changes inferolaterally. IMPRESSION: Acute coronary syndrome with multiple risk factors including diabetes, family history, known history of coronary artery disease, hypertension, hyperlipidemia. We will plan for angiography and intervention based on the above. TRANSINT:[id number] Voice Confirmation ID: [id number] DOCUMENT ID: [id number] RADHA HUMPHREYS MD at 0849 CC: [id number] DICTATION DATE: 12/26/20 1018 INTERFACE ENGINEER: 12/26/20 1123 DIS IN 12/26/20 [place] [id number] [place] [id number]
--- NOTE | 2020-12-29 08:49 | OP ---
PATIENT NAME: JASPREET NELSON MEDICAL RECORD: [id number] :46 LOCATION:[facility] ADMISSION DATE:12/25/20 SURGEON: RADHA HUMPHREYS MD DATE OF OPERATION: 12/26/2020 PROCEDURE: Left heart catheterization, selective angiogram, right femoral artery approach. CATHETERS: A 5-Thai sheath, 5/4 left and right Ludy, 5/4 pig. The procedure was well tolerated. The patient was returned to [facility]. Sheath removed. ExoSeal device was placed. FINDINGS: Left ventriculography: Normal wall motion, normal systolic function, EF greater than or equal to 55%. CORONARY ANATOMY: 1. Left main: Left main is free of disease. 2. LAD is totally occluded. This was a small LAD, not quite reaching the apex, is filled excellent via right to left collaterals. 3. Circumflex: A large circumflex, help to supply the apex, is free of disease. 4. Right coronary artery: Area of previous stenting is widely patent and fills the LAD itself well via right to left collaterals. IMPRESSION: Suspect angina secondary to hypertension, demand ischemia as well as collateral insufficiency. We will add Ranexa to her underlying medical regime. Continue blood pressure control. Further recommendations based on clinical course. TRANSINT:[id number] Voice Confirmation ID: [id number] DOCUMENT ID: [id number] RADHA HUMPHREYS MD at 0849 CC: [id number] DICTATION DATE: 12/26/20 1020 COBBLER SOLE: 12/26/20 1134 DIS IN 12/26/20 [place] [id number] [place] [address]
== END 2020-12-26 13:15 | disposition home or self-care (01) ==
LOC: D.ER 20:23 → OBSVTIME 23:58 → D.CLR 23:58 → D.EDHOLD 23:58 → D.CLR 12-26 11:17
PROVIDERS: Family Medicine; Internal Medicine Interventional Cardiology; ADMIT Family Medicine; ATTEND Family Medicine
DX: I25.110 Atherosclerotic heart disease of native coronary artery with unstable angina pectoris (principal); R07.9 Chest pain, unspecified; E11.40 Type 2 diabetes mellitus with diabetic neuropathy, unspecified; I10 Essential (primary) hypertension; J45.909 Unspecified asthma, uncomplicated; Z79.84 Long term (current) use of oral hypoglycemic drugs; E78.5 Hyperlipidemia, unspecified; E03.9 Hypothyroidism, unspecified; R06.02 Shortness of breath